=== PATIENT | female | born 1970 | race Caucasian/White ===

== ENCOUNTER → 2016-07-06 | Outpatient (CLI) | payer BC | END | disposition home or self-care (01) | LOC: GMAM 17:15 | PROVIDERS: ATTEND Family Medicine | DX: K76.0 Fatty (change of) liver, not elsewhere classified (principal) ==

== ENCOUNTER → 2017-08-06 | Outpatient (CLI) | payer BC | LOC: GMAJS 12:38 | PROVIDERS: ATTEND Physician Assistant | DX: M54.5 Low back pain (principal) ==

== ENCOUNTER → 2017-08-27 | Outpatient (CLI) | payer BC ==
--- NOTE | 2017-08-30 09:39 | MRI ---
EXAM DESCRIPTION: Lumbar Spine w/wo Contrast MRI. CLINICAL HISTORY: LOW BACK PAIN COMPARISON: None. TECHNIQUE: Multiplanar, multiple standard sequences, without and with gadolinium IV contrast , MRI, lumbar spine. FINDINGS: L4-5: Disc desiccation and minimal disc space loss. Posterior broad-based bulge with midline 5 mm protrusion impressing on the thecal sac and abutting the bilateral descending L5 nerves above the subarticular recesses. Posterior disc is enhancing. Posterior flavum ligament hypertrophy. Facets are negative. Mild canal stenosis. Disc bulge into the bilateral foramina more right than left with minimal narrowing. Right side small Schmorl's nodes on both endplates. Bilateral pedicle shortening. L3-4: No disc desiccation with disc space maintained. Tiny posterior bulge with mild canal narrowing. Bilateral posterior flavum ligament hypertrophy. Mild canal narrowing. Bilateral foramina are patent. Normal contrast enhancement. Bilateral pedicle shortening. L5-S1: Normal signal in the disc with minimal loss of disc space. Posterior elements unremarkable. Bilateral pedicle shortening. Mild canal narrowing. Bilateral foramina are patent. Normal contrast enhancement. L2-3: Normal signal in the disc and normal disc space with no bulging. Posterior elements unremarkable. Mild canal narrowing. Bilateral pedicle shortening. Bilateral foramina are patent. Normal contrast enhancement. Remaining discs with normal signal and disc spaces preserved. Posterior elements are unremarkable. Canal and foramina are patent. Normal contrast enhancement. Conus terminates at T12-L1. Conus and included cord with normal enhancement. No scoliosis. Paravertebral soft tissues unremarkable with normal contrast enhancement.. Normal marrow signal in the remaining vertebral bodies and the posterior elements. Vertebral bodies are not compressed at any level. Normal contrast enhancement. IMPRESSION: 1. Bilateral pedicle shortening from L5-S1 to L2-3 contributing to canal narrowing. 2. L4-5 disc desiccation posterior annular fissure and disc protrusion with enhancement. Schmorl's nodes on the superior and inferior endplates on the right side. Mild canal stenosis. Minimal foraminal narrowing. 3. Tiny posterior L3-4 disc bulge with mild canal narrowing. Bilateral foramina are patent. Normal contrast enhancement. Electronically signed by: Francesco Joshi MD 08/30/2017 9:38 AM CDT
== END ==
LOC: MRI 09:53
PROVIDERS: ATTEND Family Medicine
DX: M51.26 Other intervertebral disc displacement, lumbar region (principal); K76.0 Fatty (change of) liver, not elsewhere classified; F32.89 Other specified depressive episodes; K21.0 Gastro-esophageal reflux disease with esophagitis

== ENCOUNTER → 2018-11-23 | Outpatient (CLI) | payer BC | LOC: LAB.O 10:38 | DX: R74.8 Abnormal levels of other serum enzymes (principal); R74.9 Abnormal serum enzyme level, unspecified ==